=== PATIENT | male | born 1985 | race Caucasian/White ===

== ENCOUNTER 2020-09-11 07:55 | Outpatient (CLI) | payer OTHER, SELFPAY | END 2020-09-11 07:56 | disposition home or self-care (01) | LOC: ANHAUDIO 07:58 | PROVIDERS: PCP Family Medicine; Visit Provider Physician Assistant Medical | DX: H93.12 Tinnitus, left ear (principal) | CPT/HCPCS: 92557; 92567 ==

== ENCOUNTER 2020-11-29 14:57 | Emergency (ER) | payer OTHER, SELFPAY ==
[2020-11-29 15:06] VITALS: BP 122/88; PULSE 75; RESP 16; TEMP 36.4; O2SAT 99
--- NOTE | 2020-11-29 16:06 | ED.GENADULT ---
HPI - General Adult General Chief complaint: Urogenital-Male Stated complaint: uti Source: patient Mode of arrival: ambulatory Limitations: no limitations History of Present Illness HPI narrative: Patient is a 35-year-old male who presents to the [facility] via POV for evaluation of dysuria that has been present proximately 5 to 6 days. He also reports a dull ache in the head of the penis. He also reports urinary frequency. Denies taking OTC meds for symptoms. Denies alleviating and aggravating factors. Denies history of UTIs and STDs. Related Data Allergies Allergy/AdvReac Type Severity Reaction Status Date / Time No Known Allergies Allergy Verified 08/20/20 16:25 Review of Systems Review of Systems: Denies history of urinary pyelonephritis and renal calculi. Pertinent negatives: fever, chills, sweats, change in appetite, poor p.o. intake, malaise, recent weight loss, myalgias, lymphadenopathy, headache, dizziness, STD exposure, painful intercourse, abdominal pain, constipation, nausea, vomiting, diarrhea, abdominal cramping, hematuria, urinary urgency, back pain, urinary incontinence, vaginal bleeding/discharge, penile drainage, testicular pain, shortness of breath, chest pain, and heart palpitations/murmurs. [facility] Past Medical History Medical History (Updated 11/29/20 @ 16:[address] [facility], ) Mixed hyperlipidemia Tinnitus of left ear Surgical History Surgical History H/O vasectomy 2020 Family History Family History Mother Hypertension Other Family history of cardiovascular disease Social History Social History Alcohol intake: never Substance use: never Substance use type: does not use Gender identity (if verbalized by the patient): Male Comments I have reviewed and agree with the patient's past medical, surgical, social, and family hx as documented by the RN. There is no relevant family history pertinent to the presenting complaint. Exam Narrative: GENERAL: Well-appearing, well-nourished, and in no acute distress. HEAD: Normocephalic, atraumatic. NECK: Supple. No lymphadenopathy or nuchal rigidity. CHEST: Lung sounds are clear to auscultation in bilateral lung munoz. No respiratory distress. HEART: Regular rate and rhythm. No murmur, gallop, or rub heard. ABDOMEN: Soft, non-tender, non-distended, normal active bowel sounds in all quadrants. No guarding. No rebound tenderness. No pulsatile or palpable abdominal mass(es). No CVAT : Bladder non-distended, non-tender. EXTREMITIES: Normal range of motion. No edema. SKIN: Warm, dry, no rash. No skin color changes. Excellent turgor. NEURO: No focal deficits. Alert and oriented x3. Course Vital Signs Vital signs: Vital Signs Temperature 97.6 F 11/29/20 15:06 Pulse Rate 75 11/29/20 15:06 Respiratory Rate 16 11/29/20 15:06 Blood Pressure 122/88 11/29/20 15:06 Pulse Oximetry 99 11/29/20 15:06 Temperature 97.6 F 11/29/20 15:06 Pulse Rate 75 11/29/20 15:06 Respiratory Rate 16 11/29/20 15:06 Blood Pressure 122/88 11/29/20 15:06 Pulse Oximetry 99 11/29/20 15:06 Reviewed Medical Decision Making Differential Diagnosis Differential Diagnosis: Nephrolithiasis, urinary tract infection, pyelonephritis, frequency of micturition, dysuria Medical Records Medical records reviewed: Yes I reviewed the external patient's medical records. Vital Signs Vital Signs: Vital Signs Temperature 97.6 F 11/29/20 15:06 Pulse Rate 75 11/29/20 15:06 Respiratory Rate 16 11/29/20 15:06 Blood Pressure 122/88 11/29/20 15:06 Pulse Oximetry 99 11/29/20 15:06 Temperature 97.6 F 11/29/20 15:06 Pulse Rate 75 11/29/20 15:06 Respiratory Rate 16 11/29/20 15:06 Blood Pressure 122/88 11/29/20 15:06 Pulse
--- NOTE | 2020-11-29 16:29 | PC.NURSE ---
1619- we called pharmacy to fix rx to make it 1 tab po bid for 7 days.
== END 2020-11-29 16:19 | disposition home or self-care (01) ==
PROVIDERS: Emergency Provider Nurse Practitioner Family; PCP Family Medicine
DX: N34.2 Other urethritis (principal); E78.2 Mixed hyperlipidemia; Z98.84 Bariatric surgery status
CPT/HCPCS: 81003; 87086; 99213; G0463

== ENCOUNTER 2024-01-05 12:40 | Outpatient (CLI) | payer OTHER, SELFPAY ==
--- NOTE | ~2024-01-05 | XR_ITS ---
EXAMINATION:XR cervical spine 4-5V DATE: 01/05/2024 12:58 INDICATION: Neck pain TECHNIQUE: AP, lateral, lateral flexion, lateral extension and odontoid views of the cervical spine a re provided. COMPARISON: None FINDINGS: Odontoid is intact. Normal atlantoaxial interval. There is a 1.5 mm anterolisthesis C3 on C4 which r educes to neutral with extension and increases to 2 mm with extension. 2 mm anterolisthesis C4 on C5 which increases to 3 mm with flexion and reduces to 1 mm with extension. 1 mm anterolisthesis C5 on C 6 which increases to 3 mm with flexion and reduces 0.5 mm with extension. Vertebral body heights are normal. Mild disc height loss at C4-C5 and C5-C6. Prevertebral soft tissues are normal. IMPRESSION: 1. Mild cervical spondylosis with borderline increased intersegmental translatory motion at C4-C5 and C5-C6. Reviewed, dictated and finalized at location B. [facility] IMPRESSION: 1. Mild cervical spondylosis with borderline increased intersegmental translato ry motion at C4-C5 and C5-C6.
== END 2024-01-05 12:41 | disposition home or self-care (01) ==
LOC: GOSHIMG 12:41
PROVIDERS: PCP Family Medicine; Visit Provider Family Medicine
DX: M43.02 Spondylolysis, cervical region (principal)
CPT/HCPCS: 72050

== ENCOUNTER 2024-02-02 07:57 | Outpatient (CLI) | payer OTHER, SELFPAY ==
--- NOTE | ~2024-02-02 | MR_ITS ---
MRI of the cervical spine Clinical History: Radiculopathy Technique: Axial T2-weighted and gradient images, and sagittal T1-weighted, T2-weighted, and STIR mason ges were acquired. Findings: There is straightening of the normal cervical lordosis. No fracture or subluxation evident. No focal or suspicious bone marrow signal abnormality seen. At C2-C3, there is no disc bulge or herniation. No spinal canal stenosis, cord compression, or neural foraminal narrowing. There is minimal facet arthropathy. At C3-C4, there is no disc bulge or herniation. No spinal canal stenosis, cord compression, or neural foraminal narrowing. There is mild facet arthropathy. At C4-C5, there is no disc bulge or herniation. No spinal canal stenosis or cord compression. No defi nite neural foraminal narrowing. At C5-C6, there is no significant disc bulge or herniation. No spinal canal stenosis, cord compressio n, or definite neural foraminal narrowing. At C6-C7, there is minimal disc bulge with a left paracentral region. Probable minimal canal stenosis without carlee cord compression. Bilateral neural foramina are preserved. No abnormal signal seen in the spinal cord. Paravertebral soft tissues are unremarkable. Impression: Minimal degenerative change, as above. Reviewed, dictated and finalized at location . SETTER Impression: Minimal degenerative change, as above.
== END 2024-02-02 07:58 | disposition home or self-care (01) ==
LOC: MICIMG 07:57
PROVIDERS: PCP Family Medicine; Visit Provider Family Medicine
DX: M47.892 Other spondylosis, cervical region (principal)
CPT/HCPCS: 72141